=== PATIENT | male | born 1995 | race Caucasian/White ===

== ENCOUNTER 2022-04-14 00:34 | Emergency (ER) | payer OTHER, SELFPAY ==
[2022-04-14] VITALS (38 sets, daily range): BP systolic 100–164; BP diastolic 44–111; PULSE 70–104; RESP 16–24; TEMP 36.6; O2SAT 97–100; BMI 31.0
--- NOTE | 2022-04-14 00:51 | CRLHL7_ITS ---
For Patients: As a result of the Century Cures Act, medical imaging exams and procedure reports are released immediately into your electronic medical record. You may view this report before your referring provider. If you have questions, please contact your health care provider. INDICATION: Pain after fall down stairs COMPARISON: None available. TECHNIQUE: CT examination of the lumbar spine is performed with spiral technique without contrast. 1.5 mm thick axial, and 3 mm thick sagittal and coronal reconstructions were made. Please note that all CT scans at this facility use dose modulation, iterative reconstruction, and/or weight-based dosing when appropriate to reduce radiation dose to as low as reasonably achievable. FINDINGS: : The vertebral bodies are normal in height and they are in anatomic alignment. There is no sign of fracture or subluxation. T12-L1: Normal. L1-2: Normal. L2-3: Mild hypertrophic spurring anteriorly, primarily at L3, of no clinical concern. Otherwise normal. L3-4: Normal. L4-5: Normal. L5-S1: Normal. Intervertebral discs are normal in height. No foraminal stenosis is evident. The visualized abdominal viscera is normal in appearance. IMPRESSION: Nearly normal CT of the lumbar spine. No sign of acute osseous injury. Please note that all CT scans at this facility use dose modulation, iterative reconstruction, and/or weight-based dosing when appropriate to reduce radiation dose to as low as reasonably achievable. Dictated by Wyatt Cochran MD @ 04/14/2022 1:23:34 AM (Electronically Signed)
--- NOTE | 2022-04-14 00:51 | CRLHL7_ITS ---
For Patients: As a result of the Century Cures Act, medical imaging exams and procedure reports are released immediately into your electronic medical record. You may view this report before your referring provider. If you have questions, please contact your health care provider. INDICATION: Pain after fall down stairs. COMPARISON: None available. TECHNIQUE: CT examination of the thoracic spine was performed without contrast enhancement. 3 mm thick axial, sagittal and coronal reconstructions were made from the base of the neck through the superior lumbar spine. Please note that all CT scans at this facility use dose modulation, iterative reconstruction, and/or weight-based dosing when appropriate to reduce radiation dose to as low as reasonably achievable. FINDINGS: : There is mild depression of the superior T3 and T4 endplates without loss of vertebral body height, findings of mild endplate fractures of indeterminate age. There is no sign of addition fracture or subluxation. The rest of the thoracic vertebral bodies and intervertebral discs are normal in height and are in anatomic alignment. Incidental note is made of multiple Schmorl`s nodes scattered throughout the thoracic spine. There is no sign of paraspinous soft tissue swelling. There are mild, hypertrophic, degenerative spurring in the anterior inferior thoracic spine to the right of midline. The visualized mediastinal structures are normal in appearance. The visualized lung is clear. The visualized superior liver, spleen, pancreas, kidneys, and ADRENALS are normal in appearance. IMPRESSION: Mild superior T3 and T4 endplate fractures of indeterminate age. No sign of any additional fracture in the thoracic spine. Please note that all CT scans at this facility use dose modulation, iterative reconstruction, and/or weight-based dosing when appropriate to reduce radiation dose to as low as reasonably achievable. Dictated by Wyatt Cochran MD @ 04/14/2022 1:20:43 AM (Electronically Signed)
--- NOTE | 2022-04-14 00:51 | CRLHL7_ITS ---
For Patients: As a result of the Century Cures Act, medical imaging exams and procedure reports are released immediately into your electronic medical record. You may view this report before your referring provider. If you have questions, please contact your health care provider. INDICATION: Pain after fall down stairs. COMPARISON: None available. TECHNIQUE: CT examination of the cervical spine is performed without contrast using spiral technique. 1.5 mm thick axial, sagittal and coronal reconstructions were made. Please note that all CT scans at this facility use dose modulation, iterative reconstruction, and/or weight-based dosing when appropriate to reduce radiation dose to as low as reasonably achievable. FINDINGS: : There is no sign of fracture or subluxation. The cervical vertebral bodies and intervertebral discs are normal in height and are in anatomic alignment. There is no sign of prevertebral soft tissue swelling. There is mild right anterior ligamentous ossification at C5-6. The airway structures are normal in appearance. The visualized skull base is normal in appearance. The visualized inferior brain is normal in appearance for the patient`s age. The tiny portion of the apices of the lungs included on today`s study are clear. IMPRESSION: Nearly normal CT of the cervical spine with no sign of acute injury. Please note that all CT scans at this facility use dose modulation, iterative reconstruction, and/or weight-based dosing when appropriate to reduce radiation dose to as low as reasonably achievable. Dictated by Wyatt Cochran MD @ 04/14/2022 1:17:24 AM (Electronically Signed)
[2022-04-14] MEDS: 0.9 % SODIUM CHLORIDE 1000 ml 1,000 ML IV (01:00)
[2022-04-14] MEDS: fentaNYL 100 MCG/2 ML inj 50 MCG IVP (01:00)
--- NOTE | 2022-04-14 01:57 | CRLHL7_ITS ---
For Patients: As a result of the Century Cures Act, medical imaging exams and procedure reports are released immediately into your electronic medical record. You may view this report before your referring provider. If you have questions, please contact your health care provider. Indication: Trauma with left upper iliac pain. Technique: Pelvis 1 views. Comparison: None. Findings: Bones: Alignment is normal. No fractures or bone lesions. Joint spaces: Unremarkable. Soft tissues: Unremarkable. Impression: Unremarkable pelvis. No sign of acute injury. Dictated by Bruno Montesinos MD @ 04/14/2022 3:39:37 AM (Electronically Signed)
--- NOTE | 2022-04-14 01:57 | CRLHL7_ITS ---
For Patients: As a result of the Cures Act, medical imaging exams and procedure reports are released immediately into your electronic medical record. You may view this report before your referring provider. If you have questions, please contact your health care provider. Indication: Trauma with patellar pain. Technique: Left knee 3 views Comparison: None Findings: Bones: Alignment is normal. No fractures or bone lesions. Joint spaces: No joint effusion. Joint spaces are well maintained. No degenerative changes. Soft tissues: Unremarkable. Impression: Normal left knee. No signs of injury. Dictated by Bruno Montesinos MD @ 04/14/2022 3:40:56 AM (Electronically Signed)
[2022-04-14] MEDS: KETOROLAC 30 MG/ML inj IVP (02:26)
[2022-04-14] MEDS: HYDROCODONE-ACETAMIN 5-325 MG 1 TAB 2 TAB PO (02:26)
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
== END 2022-04-14 05:44 | disposition home or self-care (01) ==
PROVIDERS: Emergency Provider Family Medicine
DX: S39.012A Strain of muscle, fascia and tendon of lower back, initial encounter (principal); W10.9XXA Fall (on) (from) unspecified stairs and steps, initial encounter; S80.02XA Contusion of left knee, initial encounter
CPT/HCPCS: 72125; 72128; 72131; 72170; 73562; 81001; 93005; 94761; 96374; 96375; 99284; 99291; A9270; J1885; J3010; J7030